=== PATIENT | female | born 1940 | race Caucasian/White ===

== ENCOUNTER 2020-09-22 10:39 | Inpatient (IN) ==
[2020-09-22] MEDS ORDERED: ONDANSETRON 4 MG/2 ML VIAL IV STA (11:06)
[2020-09-22] MEDS ORDERED: SODIUM CHLORIDE 0.9% 1,000 ML IV STA (11:06)
[2020-09-22] MEDS ORDERED: ONDANSETRON 4 MG/2 ML VIAL ONE (11:08)
[2020-09-22 11:21] LABS: Basophils % 0.3 % (0.0-0.8); Eosinophils % 0.3 % (0.00-10.9); Hematocrit 36.1 VOL% (35.7-47.0); Hemoglobin 11.8 GM/DL (12.0-16.0); Immature Granulocytes % 2.8 %; Immature Granulocytes Absolute 0.09 #; Lymphocytes # 0.2 10*3/uL (1.4-4.0); Lymphocytes % 5.3 % (21.3-54.2); Mean Corpuscular HGB Conc 32.7 GM/DL (32-36); Monocytes % 0.9 % (1.7-12.7); Neutrophils % 90.4 % (38.7-73.9); Platelet Count 212 T/CUMM (130-400); Red Cell Distribution Width 13.6 % (9.3-17.3); White Blood Count 3.2 T/CUMM (4-12)
[2020-09-22 11:44] LABS: Alanine Aminotransferase 27 U/L (13-56); Albumin 3.2 G/DL (3.4-5.0); Alkaline Phosphatase 127 U/L (45-117); Amylase 51 U/L (25-115); Aspartate Amino Transferase 14 U/L (0-37); Blood Urea Nitrogen 23 MG/DL (7-18); Calcium 9.1 MG/DL (8.5-10.1); Estimated Glom Filtration Rate 46 ML/MIN; Glucose 119 MG/DL (74-106); Osmolality,Calculated 290.8 MOS/KG (273-304)
[2020-09-22 13:44] LABS: Bilirubin,Urine Negative (Negative); Blood, Urine Negative (Negative); Glucose,Urine (UA) Negative (Negative); Ketones,Urine Negative (Negative); Mucus,Urine Occasional /LPF (Occasional); Nitrite,Urine Positive (Negative); Protein,Urine 100 MG/DL; RBC,Urine 20 /HPF (0-4); Urine Appearance CLOUDY (Clear); Urine Color Yellow (Yellow); Urine Specific Gravity 1.008 (1.001-1.035); Urine Urobilinogen < 2.0 EU/DL (0.2-1.0); WBC,Urine 272 /HPF (0-6)
[2020-09-22] MEDS ORDERED: DEXTROSE 50% 25 GM/50 ML VIAL IV PRN (13:50)
[2020-09-22] MEDS ORDERED: hydrALAZINE 20 MG/1 ML VIAL IV PRN (13:50)
[2020-09-22] MEDS ORDERED: DOCUSATE SODIUM 100 MG CAPSULE PO PRN (13:50)
[2020-09-22] MEDS ORDERED: GLUCAGON 1 MG VIAL IM PRN (13:50)
[2020-09-22] MEDS ORDERED: MAGNESIUM SULF RIDER 4 GM in PREMIX 1 EACH IV PRN (13:54)
[2020-09-22] MEDS ORDERED: MAGNESIUM SULF RIDER 2 GM in PREMIX 1 EACH IV PRN (13:54)
[2020-09-22] MEDS: ENOXAPARIN 40 MG/0.4 ML SYRINGE SUBCUT SCH (15:05)
[2020-09-22] MEDS: SODIUM CHLORIDE 0.9% 1,000 ML IV SCH ×3 (16:26→22:41)
[2020-09-22] MEDS: carvediloL 6.25 MG TABLET PO SCH (16:44)
[2020-09-22] MEDS: SULFAMETHOX/TRIMETHOPRIM 800-160 MG TABLET PO SCH (21:51)
[2020-09-22] MEDS: SIMVASTATIN 10 MG TABLET PO SCH (21:51)
[2020-09-22] MEDS: hydrALAZINE 25 MG TABLET PO SCH (21:52)
[2020-09-22] MEDS: SERTRALINE 100 MG TABLET PO SCH (21:52)
[2020-09-23 00:43] LABS: Basophils % 0.1 % (0.0-0.8); Hematocrit 28.7 VOL% (35.7-47.0); Hemoglobin 9.6 GM/DL (12.0-16.0); Immature Granulocytes % 1.6 %; Lymphocytes # 0.4 10*3/uL (1.4-4.0); Lymphocytes % 2.2 % (21.3-54.2); Mean Corpuscular HGB Conc 33.4 GM/DL (32-36); Mean Corpuscular Volume 85.7 FL (87-102); Mean Platelet Volume 9.9 FL (9.6-12.0); Monocytes % 4.9 % (1.7-12.7); Neutrophils % 91.2 % (38.7-73.9); Platelet Count 163 T/CUMM (130-400); Red Blood Count 3.35 MC/CUMM (3.8-5.5); Red Cell Distribution Width 13.8 % (9.3-17.3); White Blood Count 18.3 T/CUMM (4-12)
[2020-09-23 01:11] LABS: Calcium 7.9 MG/DL (8.5-10.1); Risk Ratio 2.58; Thyroid Stimulating Hormone 0.36 uIU/ml (0.358-3.74); VLDL CHOLESTEROL 17.2 MG/DL
[2020-09-23] MEDS: ONDANSETRON 4 MG/2 ML VIAL IV PRN ×2 (02:15→21:20)
[2020-09-23] MEDS: ACETAMINOPHEN 325 MG TABLET PO PRN (02:15)
[2020-09-23 03:40] LABS: Band Neutrophils 3 % (0-10); Lymphocytes 2 % (20-55); Platelet Estimate Normal; Segmented Neutrophils 92 % (50-85); Total Cells Counted 100
[2020-09-23] MEDS: SODIUM CHLORIDE 0.9% 1,000 ML IV SCH ×2 (07:07→23:16)
[2020-09-23] MEDS ORDERED: AZTREONAM 2,000 MG VIAL IM ONE (07:48)
[2020-09-23] MEDS: SULFAMETHOX/TRIMETHOPRIM 800-160 MG TABLET PO SCH ×2 (08:30→21:21)
[2020-09-23] MEDS: amLODIPine 10 MG TABLET PO SCH ×2 (08:31→09:44)
[2020-09-23] MEDS: carvediloL 6.25 MG TABLET PO SCH ×2 (08:31→09:44)
[2020-09-23] MEDS: hydrALAZINE 25 MG TABLET PO SCH ×2 (08:31→09:44)
[2020-09-23] MEDS ORDERED: AZTREONAM IV ONE (10:00)
[2020-09-23] MEDS: VANCOMYCIN INJ 1,500 MG in SODIUM CHLORIDE 0.9% 500 ML IV SCH (13:06)
[2020-09-23] MEDS: ENOXAPARIN 40 MG/0.4 ML SYRINGE SUBCUT SCH (13:18)
[2020-09-23] MEDS: ALBUTEROL 1.25 MG/3 ML NEB RESP TX SCH ×2 (14:06→19:52)
[2020-09-23] MEDS: AZTREONAM 1,000 MG in SYRINGE 1 EACH IV SCH (17:44)
[2020-09-23] MEDS: SIMVASTATIN 10 MG TABLET PO SCH (21:20)
[2020-09-23] MEDS: SERTRALINE 100 MG TABLET PO SCH (21:21)
[2020-09-24] MEDS: ALBUTEROL 1.25 MG/3 ML NEB RESP TX SCH ×4 (01:12→21:11)
[2020-09-24] MEDS: AZTREONAM 1,000 MG in SYRINGE 1 EACH IV SCH ×3 (02:50→17:33)
[2020-09-24] MEDS: SODIUM CHLORIDE 0.9% 1,000 ML IV SCH ×2 (03:00→16:54)
[2020-09-24] MEDS: ACETAMINOPHEN 325 MG TABLET PO PRN (04:22)
[2020-09-24 07:09] LABS: Basophils % 0.2 % (0.0-0.8); Eosinophils # 0.1 10*3/uL (0.0-0.87); Eosinophils % 0.4 % (0.00-10.9); Hematocrit 29.1 VOL% (35.7-47.0); Hemoglobin 9.6 GM/DL (12.0-16.0); Immature Granulocytes % 5.1 %; Immature Granulocytes Absolute 0.64 #; Lymphocytes # 0.5 10*3/uL (1.4-4.0); Mean Corpuscular Volume 85.3 FL (87-102); Mean Platelet Volume 10.6 FL (9.6-12.0); Monocytes % 3.8 % (1.7-12.7); Neutrophils % 86.5 % (38.7-73.9); Platelet Count 145 T/CUMM (130-400); Red Blood Count 3.41 MC/CUMM (3.8-5.5); White Blood Count 12.6 T/CUMM (4-12)
[2020-09-24 07:20] LABS: Osmolality,Calculated 284.1 MOS/KG (273-304)
[2020-09-24] MEDS: SULFAMETHOX/TRIMETHOPRIM 800-160 MG TABLET PO SCH ×2 (09:49→21:41)
[2020-09-24] MEDS: carvediloL 6.25 MG TABLET PO SCH ×2 (09:53→16:54)
[2020-09-24 11:05] LABS: Lymphocytes 8 % (20-55); Segmented Neutrophils 89 % (50-85); Total Cells Counted 100
[2020-09-24 11:06] LABS: Hypochromasia 1+
[2020-09-24 11:07] LABS: Ovalocytes Few; Platelet Estimate Adequate; Polychromasia Slight
[2020-09-24] MEDS: VANCOMYCIN INJ 1,500 MG in SODIUM CHLORIDE 0.9% 500 ML IV SCH (12:09)
[2020-09-24] MEDS: ENOXAPARIN 40 MG/0.4 ML SYRINGE SUBCUT SCH (16:54)
[2020-09-24] MEDS: SIMVASTATIN 10 MG TABLET PO SCH (21:41)
[2020-09-24] MEDS: SERTRALINE 100 MG TABLET PO SCH (21:41)
[2020-09-25] MEDS: SODIUM CHLORIDE 0.9% 1,000 ML IV SCH (02:17)
[2020-09-25] MEDS: AZTREONAM 1,000 MG in SYRINGE 1 EACH IV SCH ×2 (02:52→10:23)
[2020-09-25] MEDS: ALBUTEROL 1.25 MG/3 ML NEB RESP TX SCH ×4 (03:00→20:30)
[2020-09-25 06:11] LABS: Basophils % 0.2 % (0.0-0.8); Eosinophils # 0.2 10*3/uL (0.0-0.87); Hematocrit 28.2 VOL% (35.7-47.0); Hemoglobin 9.1 GM/DL (12.0-16.0); Immature Granulocytes % 2.1 %; Immature Granulocytes Absolute 0.21 #; Lymphocytes # 0.8 10*3/uL (1.4-4.0); Lymphocytes % 7.7 % (21.3-54.2); Mean Corpuscular HGB Conc 32.3 GM/DL (32-36); Monocytes % 3.7 % (1.7-12.7); Neutrophils % 84.3 % (38.7-73.9); Platelet Count 138 T/CUMM (130-400); Red Blood Count 3.28 MC/CUMM (3.8-5.5); White Blood Count 10.2 T/CUMM (4-12)
[2020-09-25 06:34] LABS: Hypochromasia 1+; Microcytosis 1+; Ovalocytes Few
[2020-09-25 06:34] LABS: Calcium 8.2 MG/DL (8.5-10.1); Osmolality,Calculated 282.1 MOS/KG (273-304)
[2020-09-25 06:35] LABS: Platelet Estimate Adequate
[2020-09-25] MEDS ORDERED: POTASSIUM CHLORIDE 20 MEQ TABLET PO ONE (09:30)
[2020-09-25] MEDS: SULFAMETHOX/TRIMETHOPRIM 800-160 MG TABLET PO SCH (10:23)
[2020-09-25] MEDS: carvediloL 6.25 MG TABLET PO SCH ×2 (10:23→17:23)
[2020-09-25] MEDS: ENOXAPARIN 40 MG/0.4 ML SYRINGE SUBCUT SCH (15:32)
[2020-09-25] MEDS ORDERED: FUROSEMIDE 40 MG/4 ML VIAL IV ONE (16:34)
[2020-09-25] MEDS: SERTRALINE 100 MG TABLET PO SCH (21:11)
[2020-09-25] MEDS: SIMVASTATIN 10 MG TABLET PO SCH (21:11)
[2020-09-26] MEDS: ALBUTEROL 1.25 MG/3 ML NEB RESP TX SCH ×2 (03:28→07:53)
[2020-09-26 08:15] LABS: Basophils % 0.4 % (0.0-0.8); Eosinophils # 0.3 10*3/uL (0.0-0.87); Eosinophils % 4.4 % (0.00-10.9); Hemoglobin 9.7 GM/DL (12.0-16.0); Immature Granulocytes Absolute 0.07 #; Lymphocytes # 0.7 10*3/uL (1.4-4.0); Lymphocytes % 9.5 % (21.3-54.2); Mean Corpuscular HGB Conc 33.4 GM/DL (32-36); Mean Corpuscular Volume 85.3 FL (87-102); Mean Platelet Volume 10.6 FL (9.6-12.0); Monocytes % 6.7 % (1.7-12.7); Platelet Count 164 T/CUMM (130-400); Red Cell Distribution Width 14.1 % (9.3-17.3); White Blood Count 7.3 T/CUMM (4-12)
[2020-09-26 08:37] LABS: Calcium 8.3 MG/DL (8.5-10.1); Osmolality,Calculated 281.1 MOS/KG (273-304)
[2020-09-26] MEDS ORDERED: LEVOFLOXACIN 500 MG TABLET PO SCH (09:00)
[2020-09-26] MEDS: carvediloL 6.25 MG TABLET PO SCH (09:30)
[2020-09-26 12:01] VITALS: BP 146/58
== END 2020-09-26 12:35 | disposition home or self-care (01) | DRG 391 ==
LOC: N.EDINP 10:39 → N.ED 10:39 → N.3E 15:37 → SUATTDRO 09-23 12:24
PROVIDERS: ADMIT Internal Medicine; ATTEND Hospitalist

== ENCOUNTER 2022-05-24 11:52 | Inpatient (IN) ==
[2022-05-24] MEDS ORDERED: SODIUM CHLORIDE 0.9% 1,000 ML IV ONE (16:17)
[2022-05-24 16:59] LABS: Basophils % 0.2 % (0.0-0.8); Eosinophils # 0.2 10*3/uL (0.0-0.87); Eosinophils % 0.9 % (0.00-10.9); Hematocrit 43.4 VOL% (35.7-47.0); Immature Granulocytes % 0.7 %; Immature Granulocytes Absolute 0.11 #; Lymphocytes # 0.8 10*3/uL (1.4-4.0); Mean Corpuscular HGB Conc 32.3 GM/DL (32-36); Mean Corpuscular Volume 86.8 FL (87-102); Mean Platelet Volume 11.8 FL (9.6-12.0); Monocytes # 0.7 10*3/uL (0.11-0.8); Neutrophils % 89.2 % (38.7-73.9); Platelet Count 269 T/CUMM (130-400); Red Cell Distribution Width 14.2 % (9.3-17.3); White Blood Count 16.3 T/CUMM (4-12)
[2022-05-24 17:13] LABS: Bacteria,Urine Occasional /HPF (Few); Bilirubin,Urine Negative (Negative); Glucose,Urine (UA) Negative (Negative); Ketones,Urine 15 mg/dL (Negative); Mucus,Urine Occasional /LPF (Occasional); Nitrite,Urine Negative (Negative); Protein,Urine Negative (Negative); RBC,Urine 2 /HPF (0-4); Urine Appearance Clear (Clear); Urine Color Yellow (Yellow)
[2022-05-24 17:14] LABS: Blood, Urine Negative (Negative)
[2022-05-24 17:18] LABS: Calcium 9.2 MG/DL (8.5-10.1); Osmolality,Calculated 280.4 MOS/KG (273-304); Potassium 3.5 MMOL/L (3.5-5.1)
[2022-05-24] MEDS ORDERED: AZITHROMYCIN INJ 500 MG in SODIUM CHLORIDE 0.9% 250 ML IV STA (17:27)
[2022-05-24] MEDS ORDERED: SODIUM CHLORIDE 0.9% 1,000 ML IV STA (17:46)
[2022-05-24] MEDS ORDERED: hydrALAZINE 20 MG/1 ML VIAL IV PRN (20:37)
[2022-05-24] MEDS ORDERED: ONDANSETRON 4 MG/2 ML VIAL IV PRN (20:37)
[2022-05-24] MEDS ORDERED: diphenhydrAMINE CAP 25 MG CAPSULE PO PRN (20:37)
[2022-05-24] MEDS ORDERED: guaiFENesin/DM ER 600-30 MG TABLET PO PRN (20:37)
[2022-05-24] MEDS ORDERED: ZALEPLON 5 MG CAPSULE PO PRN (20:37)
[2022-05-24] MEDS ORDERED: ACETAMINOPHEN 325 MG TABLET PO PRN (20:37)
[2022-05-24] MEDS ORDERED: NICOTINE 21 MG/24 HR PATCH TRANSDERM PRN (20:37)
[2022-05-24] MEDS ORDERED: GLUCAGON 1 MG VIAL IM PRN (20:37)
[2022-05-24] MEDS ORDERED: DEXTROSE 10% 250 ML BAG IV PRN (20:56)
[2022-05-24] MEDS ORDERED: SERTRALINE 100 MG TABLET PO SCH (21:00)
[2022-05-24] MEDS ORDERED: SIMVASTATIN 10 MG TABLET PO SCH (21:00)
[2022-05-24] MEDS: HEPARIN 5,000 UNIT/1 ML VIAL SUBCUT SCH (21:39)
[2022-05-24] MEDS: hydrALAZINE 25 MG TABLET PO SCH (21:40)
[2022-05-24] MEDS: carvediloL 6.25 MG TABLET PO SCH (21:40)
[2022-05-24] MEDS: Budesonide-Glycopyr-Formoterol [Breztri Aerosphere] INH SCH (23:40)
[2022-05-25] MEDS: ALBUTEROL/IPRATROPIUM 3 ML NEB RESP TX SCH ×2 (00:48→07:28)
[2022-05-25] MEDS: DOXYCYCLINE HYCLATE INJ 100 MG in SODIUM CHLORIDE 0.9% 100 ML IV SCH ×2 (02:01→09:03)
[2022-05-25 05:07] LABS: Calcium 8.7 MG/DL (8.5-10.1); Osmolality,Calculated 289.7 MOS/KG (273-304); Potassium 3.4 MMOL/L (3.5-5.1)
[2022-05-25 05:51] LABS: Basophils % 0.2 % (0.0-0.8); Eosinophils # 0.2 10*3/uL (0.0-0.87); Eosinophils % 3.9 % (0.00-10.9); Hematocrit 31.5 VOL% (35.7-47.0); Immature Granulocytes % 0.6 %; Immature Granulocytes Absolute 0.03 #; Lymphocytes # 0.9 10*3/uL (1.4-4.0); Lymphocytes % 17.1 % (21.3-54.2); Mean Corpuscular HGB Conc 31.7 GM/DL (32-36); Mean Corpuscular Volume 87.7 FL (87-102); Mean Platelet Volume 10.3 FL (9.6-12.0); Monocytes # 0.5 10*3/uL (0.11-0.8); Monocytes % 8.6 % (1.7-12.7); Neutrophils % 69.6 % (38.7-73.9)
[2022-05-25 05:54] LABS: Platelet Count 194 T/CUMM (130-400); Red Blood Count 3.59 MC/CUMM (3.8-5.5); White Blood Count 5.3 T/CUMM (4-12)
[2022-05-25] MEDS ORDERED: POTASSIUM CHLORIDE 20 MEQ TABLET PO ONE (07:50)
[2022-05-25] MEDS ORDERED: amLODIPine 10 MG TABLET PO SCH (09:00)
[2022-05-25] MEDS ORDERED: FUROSEMIDE 20 MG TABLET PO SCH (09:00)
[2022-05-25] MEDS ORDERED: PANTOPRAZOLE 40 MG TABLET PO SCH (09:00)
[2022-05-25] MEDS: hydrALAZINE 25 MG TABLET PO SCH (09:02)
[2022-05-25] MEDS: HEPARIN 5,000 UNIT/1 ML VIAL SUBCUT SCH (09:03)
[2022-05-25] MEDS: carvediloL 6.25 MG TABLET PO SCH (09:03)
[2022-05-25] MEDS: Budesonide-Glycopyr-Formoterol [Breztri Aerosphere] INH SCH (09:11)
[2022-05-25] MEDS ORDERED: LEVOFLOXACIN 500 MG TABLET PO SCH (11:00)
[2022-05-25 12:13] VITALS: BP 131/67
== END 2022-05-25 12:23 | disposition home or self-care (01) | DRG 195 ==
LOC: N.ED 11:52 → N.EDINP 17:46 → SUATTDRO 17:46 → N.EDINP 19:28 → N.TELEN 19:30
PROVIDERS: ADMIT Internal Medicine; ATTEND Internal Medicine